=== PATIENT | female | born 1985 | race Caucasian/White ===

== ENCOUNTER 2017-02-19 21:57 | Emergency (ER) | payer MEDICAID ==
[~2017-02-19] VITALS: Ht 160 cm; Wt 58.0 kg
[2017-02-19 22:17] VITALS: Ht 160 cm; Wt 58.0 kg
--- NOTE | 2017-02-19 23:16 | ERD ---
ER Documentation Chief Complaint Date/Time DATE: 02/19/17 TIME: 23:15 Chief Complaint bee sting to l upper leg 1630 HPI 32-year-old female bee sting to her left upper leg at 430. No fevers no chills no nausea no vomiting or mild inflammation noted mild erythema that is spreading for the patient. ROS All systems reviewed and are negative except as per history of present illness. Allergies Allergies: Coded Allergies: No Known Allergy (Unverified , 02/19/17) PMhx/Soc Medical and Surgical Hx: pt denies Medical Hx Hx Alcohol Use: No Hx Substance Use: No Hx Tobacco Use: No Physical Exam Vitals Vital Signs Date Time Temp Pulse Resp B/P Pulse Ox O2 Delivery O2 Flow Rate FiO2 02/19/17 22:17 97.9 69 18 131/83 100 Physical Exam Const: [] Head: Atraumatic Eyes: Normal Conjunctiva ENT: Normal External Ears, Nose and Mouth. Neck: Full range of motion..~ No meningismus. Resp: Clear to auscultation bilaterally Cardio: Regular rate and rhythm, no murmurs Abd: Soft, non tender, non distended. Normal bowel sounds Skin: 4 x 4 area of induration erythema noted on left upper inner thigh. No fluctuance. Back: No midline or flank tenderness Ext: No cyanosis, or edema Neur: Awake and alert Psych: Normal Mood and Affect Results 24 hrs Current Medications Medications (Trade) Dose Ordered Sig/Sweta Route PRN Reason Start Time Stop Time Status Last Admin Dose Admin Ceftriaxone Sodium (Rocephin) 1 gm ONCE ONCE IM 02/19/17 23:30 02/19/17 23:31 Procedures/MDM Patient will be staying with looks like she has mild infection. Patient be discharged home with Keflex Bactrim, Benadryl. Return for wound check tomorrow. Return sooner if gets worse. No evidence of anaphylaxis. Departure Diagnosis: Primary Impression: Bee sting Encounter type: initial encounter Injury intent: undetermined intent Qualified Code: T63.444A - Bee sting, undetermined intent, initial encounter Condition: Stable ROYA TURNER ChataStefanie Feb 19, 2017 23:16
[2017-02-19] MEDS ORDERED: SULF1TAB31 PO (23:19)
[2017-02-19] MEDS ORDERED: BEN25 PO (23:19)
[2017-02-19] MEDS ORDERED: CEPH-443 PO (23:19)
[2017-02-19] MEDS ORDERED: CEFTRIAXONE 1 GM INJ IM ONE (23:30)
[2017-02-20 00:20] VITALS: BP 127/78; PULSE 72; RESP 20
== END 2017-02-20 00:21 | disposition home or self-care (01) ==
LOC: E/R 21:57
DX: T63.444A Toxic effect of venom of bees, undetermined, initial encounter (principal)
CPT/HCPCS: 96372; J0696; Z7502